=== PATIENT | female | born 1950 | race Caucasian/White ===

== ENCOUNTER → 2016-06-27 | Outpatient (REF) | payer OTHER | LOC: M LAB REF 13:25 | PROVIDERS: ATTEND Internal Medicine Medical Oncology | DX: C26.0 Malignant neoplasm of intestinal tract, part unspecified (principal) ==

== ENCOUNTER → 2016-10-08 | Outpatient (REF) | payer OTHER | LOC: M LAB REF 13:47 | PROVIDERS: ATTEND Internal Medicine Medical Oncology | DX: C18.9 Malignant neoplasm of colon, unspecified (principal) ==

== ENCOUNTER → 2017-01-14 | Outpatient (REF) | payer OTHER | LOC: M LAB REF 13:22 | PROVIDERS: ATTEND Internal Medicine Medical Oncology | DX: C18.9 Malignant neoplasm of colon, unspecified (principal) ==

== ENCOUNTER → 2017-04-16 | Outpatient (REF) | payer OTHER ==
[2017-04-18 09:30] LABS: CARCINOEMBRYONIC ANTIGEN 4.8 NG/ML (<2.5)
== END ==
LOC: M LAB REF 13:35
DX: C18.9 Malignant neoplasm of colon, unspecified (principal)

== ENCOUNTER 2023-08-06 06:12 | Day surgery (SDC) | payer MEDICARE, MEDICAID ==
[~2023-08-06] VITALS: Ht 152.4 cm; Wt 46.2 kg
[~2023-08-06 06:12] MED LIST: ALPR0.25 PO; ATOR80TA59 PO; BUDE10.32 INH; CITA20TA6 PO; LISI5TAB11 PO; MAGN400T33 PO; METO1TAB87 PO; PANT40TA29 PO; XARE20TA PO
[2023-08-06] MEDS: LR 1,000 ML IV SCH (07:10)
[2023-08-06] MEDS ORDERED: MIDAZOLAM INJ 2MG/2ML VIAL As Ordered ONE (07:24)
[2023-08-06] MEDS ORDERED: ROCURONIUM BROMIDE 50MG/5ML VIAL As Ordered ONE (07:24)
[2023-08-06] MEDS ORDERED: propofoL 200 MG/20 ML VIAL As Ordered ONE (07:24)
[2023-08-06] MEDS ORDERED: fentaNYL 100 MCG/2 ML INJECTION As Ordered ONE (07:24)
[2023-08-06] MEDS ORDERED: ONDANSETRON 4MG 2ML VIAL As Ordered ONE (07:24)
[2023-08-06] MEDS ORDERED: LIDOCAINE 2% 100MG/5ML SDV (FOR ANES.) As Ordered ONE (07:24)
[2023-08-06] MEDS: EPINEPHrine 1MG/10ML SYRINGE 1.5IN As Ordered ONE (07:48)
[2023-08-06] MEDS: CETACAINE SPRAY 5GM As Ordered ONE (07:48)
[2023-08-06] MEDS: THROMBIN 5,000 UNITS VIAL As Ordered ONE (07:48)
[2023-08-06] MEDS ORDERED: ePHEDrine SULFATE 25 MG/5 ML(5MG/ML) SYRINGE As Ordered ONE (07:50)
[2023-08-06] MEDS ORDERED: PHENYLephrine 500MCG 5ML (100MCG/ML) SYRINGE As Ordered ONE (07:50)
[2023-08-06] MEDS ORDERED: SUGAMMADEX SODIUM 500 MG/5 ML VIAL (BRIDION) As Ordered ONE (08:03)
[2023-08-06] MEDS ORDERED: ONDANSETRON 4MG 2ML VIAL IV PRN (08:10)
[2023-08-06] MEDS ORDERED: fentaNYL 100 MCG/2 ML INJECTION IV PRN (08:10)
[2023-08-06] MEDS ORDERED: oxyCODONE 5MG TAB PO PRN (08:10)
[2023-08-06] MEDS ORDERED: LR 1,000 ML IV SCH (08:10)
[2023-08-06 09:52] VITALS: BP 132/73; TEMP 98.9; O2SAT 88
== END 2023-08-06 10:15 | disposition home or self-care (01) ==
LOC: M SDC 06:12
PROVIDERS: ATTEND Internal Medicine Pulmonary Disease
DX: C34.31 Malignant neoplasm of lower lobe, right bronchus or lung (principal); J42 Unspecified chronic bronchitis; I48.91 Unspecified atrial fibrillation; E11.9 Type 2 diabetes mellitus without complications; Z95.0 Presence of cardiac pacemaker; Z95.5 Presence of coronary angioplasty implant and graft; Z88.2 Allergy status to sulfonamides; Z79.899 Other long term (current) drug therapy; Z79.51 Long term (current) use of inhaled steroids; Z79.01 Long term (current) use of anticoagulants; F17.210 Nicotine dependence, cigarettes, uncomplicated
CPT/HCPCS: 31628; 71045; 88305; J0171; J1100; J2250; J2371; J2405; J3010

== ENCOUNTER → 2023-08-29 | Outpatient (CLI) | payer MEDICARE, MEDICAID ==
[~2023-08-29] MED LIST changes: +CYAN-11 PO; +DEXA4TA PO; +FLUT1BLS8; +FOLI1TAB11 PO; +ONDA-84 PO; +OXYC1TAB23; +PROC10TA5 PO
== END ==
LOC: M ONCR 09:47
PROVIDERS: ATTEND General Practice
DX: C34.31 Malignant neoplasm of lower lobe, right bronchus or lung (principal); F17.210 Nicotine dependence, cigarettes, uncomplicated; R63.4 Abnormal weight loss; Z79.899 Other long term (current) drug therapy; Z85.038 Personal history of other malignant neoplasm of large intestine; Z83.3 Family history of diabetes mellitus; Z88.2 Allergy status to sulfonamides

== ENCOUNTER → 2023-09-01 | Outpatient (CLI) | payer MEDICARE, MEDICAID ==
[~2023-09-01] MED LIST changes: -DEXA4TA PO; -ONDA-84 PO; -PROC10TA5 PO
== END ==
LOC: M PLARAD 09:19
PROVIDERS: ATTEND Internal Medicine Pulmonary Disease
DX: C34.31 Malignant neoplasm of lower lobe, right bronchus or lung (principal)
CPT/HCPCS: 78815; A9552

== ENCOUNTER 2023-09-16 10:38 | Outpatient (RCR) | payer MEDICARE, MEDICAID ==
[~2023-09-16 10:38] MED LIST changes: +DEXA4TA PO; +ONDA-84 PO; +PROC10TA5 PO
== END 2023-09-24 ==
LOC: M ONCR 10:38
PROVIDERS: ATTEND General Practice
DX: Z51.0 Encounter for antineoplastic radiation therapy (principal); C34.31 Malignant neoplasm of lower lobe, right bronchus or lung